=== PATIENT | female | born 1955 | race Caucasian/White ===

== ENCOUNTER 2025-05-13 10:02 | Outpatient (CLI) | payer MEDICARE, SELFPAY ==
--- NOTE | 2025-05-13 11:00 | CRLHL7_ITS ---
For Patients: As a result of the Century Cures Act, medical imaging exams and procedure reports are released immediately into your electronic medical record. You may view this report before your referring provider. If you have questions, please contact your health care provider. INDICATION: Lung cancer screening. History of smoking. High risk patient with 25 pack-year smoking history. TECHNIQUE: Low-dose lung cancer screening non-contrast CT chest. Dose reduction techniques were used. COMPARISON: None. FINDINGS: NODULES: 4 mm nodule right lower lobe image 108 series 3. Several additional right lower lobe micro nodules best seen on the MIP images. LUNGS AND PLEURA: Normal. MEDIASTINUM: Normal. CORONARY ARTERY CALCIFICATION: Present. LIMITED UPPER ABDOMEN: Gastric bypass. Cholecystectomy. 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 IMPRESSION: 1. Negative for lung cancer screening purposes. LUNG-RADS CATEGORY 2: Benign. Continue annual screening, if eligible, with low-dose CT chest in 12 months. Please note that all CT scans at this facility use dose modulation, iterative reconstruction, and/or weight-based dosing when appropriate to reduce radiation dose to as low as reasonably achievable. Dictated by Dami Aparicio MD @ 05/14/2025 10:43:21 AM (Electronically Signed)
== END 2025-05-13 10:03 | disposition home or self-care (01) ==
LOC: CT 10:03
PROVIDERS: PCP Family Medicine; Visit Provider Family Medicine
DX: Z12.2 Encounter for screening for malignant neoplasm of respiratory organs (principal); F17.200 Nicotine dependence, unspecified, uncomplicated
CPT/HCPCS: 71271

== ENCOUNTER 2025-07-01 08:57 | Outpatient (CLI) | payer MEDICARE, SELFPAY | END 2025-07-01 08:58 | disposition home or self-care (01) | LOC: FRMREF 08:57 | PROVIDERS: PCP Family Medicine; Visit Provider Family Medicine | DX: E87.1 Hypo-osmolality and hyponatremia (principal); E78.5 Hyperlipidemia, unspecified; I10 Essential (primary) hypertension; E11.9 Type 2 diabetes mellitus without complications | CPT/HCPCS: 80053; 80061; 82043; 82570 ==

== ENCOUNTER 2025-07-04 11:46 | Outpatient (CLI) | payer MEDICARE, SELFPAY | END 2025-07-04 11:47 | disposition home or self-care (01) | LOC: FRMREF 11:47 | PROVIDERS: PCP Family Medicine; Visit Provider Family Medicine | DX: I10 Essential (primary) hypertension (principal); Z13.29 Encounter for screening for other suspected endocrine disorder | CPT/HCPCS: 84295; 84443 ==

== ENCOUNTER 2025-07-11 12:05 | Day surgery (SDC) | payer MEDICARE, SELFPAY ==
[2025-07-11] VITALS (7 sets, daily range): BP systolic 139–181; BP diastolic 60–92; PULSE 69–86; RESP 16; TEMP 36.1–36.9; O2SAT 91–96; BMI 29.5
[2025-07-11] MEDS: LACTATED RINGERS 1000 ML 1,000 ML 100 ML IV ×2 (12:15→14:55)
[2025-07-11] MEDS: SODIUM CHLORIDE 0.9 % (FLUSH) 10 ML SYRINGE IVF (13:00)
--- NOTE | 2025-07-11 13:18 | W.PM.H&PU ---
History & Physical Update History & Physical Update H&P Reviewed and patient assessed: No changes noted
[2025-07-11] MEDS: SILVER NITRATE APPLICATOR 1 EACH STICK..EA. TOPICAL (14:29)
--- NOTE | 2025-07-11 14:51 | P.GYNPRC_ITS ---
Procedure Note Date of procedure: 07/11/25 Will [facility] bill your pro fee for this procedure?: Yes Pre-op diagnosis: Vulvar cysts Post-op diagnosis: Same, calcified inclusion cysts Procedure: Exam under anesthesia, removal of multiple vulvar inclusion cysts Complications: None Surgeon: Wilda Castle MD Estimated blood loss (mL): 5 Pathology: specimen obtained, sent to pathology Condition: stable Disposition: same day Findings: Multiple vulvar cysts, largest on the left labia minora of about 2cm in largest dimension, second largest on the right clitoral rocha of about 1cm, another on the right medial aspect of labia majora of about 1cm, 3 smaller ones that were removed of about 0.5cm. These were all consistent with calcified inclusion cyst s. One of the cyst capsule sent to pathology to confirm this diagnosis. Procedure Description: Patient was taken to the OR were MAC anesthesia was administered without difficulty. She was placed in the dorsal lithotomy position with Gavin type stirrups. Patient was then prepared and draped in the normal sterile fashion. 0.5% lidocaine with epinephrine was first injected into the skin over were the incision for cyst removal was to be performed. Cyst was drained with pressure, then utilizing pickups and small Metzenbaum scissors the skin was from cyst capsule and capsule was sequentially removed. The cyst space was then irrigated with normal saline. The defect of the largest cyst that was removed was treated with silver nitrate but the fatty layer/ space was approximated with Vicryl 3-0 in a figure of 8 fashion. Then the skin over was approximated with interrupted Vicryl 4-0 suture in a subcuticular fashion. For the rest of the cysts there was no need to close space, only the skin. So in a similar fashion cysts removed in the right clitoral rocha, medial aspect of right labia majora at around 9 and 8 o clock, perineum close to introitus, medial aspect of left labia majora at 3 o clock. Hemostasis was secured. Procedure ended. Patient tolerated the procedure well. Instrument and sponge counts were correct x2. Th e patient was awakened from MAC anesthesia and taken to the recovery room in a stable condition. The patient will go home after recovering from anesthesia and meeting all the criteria for discharge. She was given instruction regarding follow-up visit in 2 weeks at [facility] and instructions for pain medication.
--- NOTE | 2025-07-11 14:58 | P.ANES_ITS ---
Anesthesia Charges Start Date/Time Anesthesia Start Date: 07/11/25 Anesthesia Start Time: 13:27 Stop Date/Time Anesthesia Stop Date: 07/11/25 Anesthesia Stop Time: 14:55 Summary Extremes of Age - Over 70 or under 1: MANAGER RESPIRATORY CARE Coding CPT Codes CPT Codes: ANESTH VAGINAL PROCEDURES - 96101 ([id number]) P3 - PATIENT W/SEVERE SYS DISEASE, QK - INSTRUCTOR OF NURSING 2-4 CNCRNT ANES PROC Additional Codes: Summary - Extremes of Age - Over 70 or under 1: MANAGER RESPIRATORY CARE ([id number])
--- NOTE | 2025-07-11 14:58 | W.ANESCHARGE ---
Anesthesia Charges Start Date/Time Anesthesia Start Date: 07/11/25 Anesthesia Start Time: 13:27 Stop Date/Time Anesthesia Stop Date: 07/11/25 Anesthesia Stop Time: 14:55 Summary Extremes of Age - Over 70 or under 1: SENIOR PACKAGING ENGINEER Coding CPT Codes CPT Codes: ANESTH VAGINAL PROCEDURES - 51603 ([id number]) P3 - PATIENT W/SEVERE SYS DISEASE, QK - FIELD COUNSEL 2-4 CNCRNT ANES PROC Additional Codes: Summary - Extremes of Age - Over 70 or under 1: SENIOR PACKAGING ENGINEER ([id number])
--- NOTE | 2025-07-11 15:04 | P.ANES_ITS ---
Anesthesia Charges Start Date/Time Anesthesia Start Date: 07/11/25 Anesthesia Start Time: 13:27 Stop Date/Time Anesthesia Stop Date: 07/11/25 Anesthesia Stop Time: 14:55 Summary Extremes of Age - Over 70 or under 1: MDA Coding CPT Codes CPT Codes: ANESTH VAGINAL PROCEDURES - 70990 ([id number]) P3 - PATIENT W/SEVERE SYS DISEASE, QK - OPERATIONS AND MAINTENANCE TECHNICAN 2-4 CNCRNT ANES PROC, QX - CONTOUR GRINDER SVC W/ MD MED DIRECTION Additional Codes: Summary - Extremes of Age - Over 70 or under 1: MDA ([id number])
--- NOTE | 2025-07-11 15:04 | W.ANESCHARGE ---
Anesthesia Charges Start Date/Time Anesthesia Start Date: 07/11/25 Anesthesia Start Time: 13:27 Stop Date/Time Anesthesia Stop Date: 07/11/25 Anesthesia Stop Time: 14:55 Summary Extremes of Age - Over 70 or under 1: MDA Coding CPT Codes CPT Codes: ANESTH VAGINAL PROCEDURES - 64220 ([id number]) P3 - PATIENT W/SEVERE SYS DISEASE, QK - NUCLEAR RADIATION ENGINEER 2-4 CNCRNT ANES PROC, QX - MACHINE CHOCOLATE MOLDER SVC W/ MD MED DIRECTION Additional Codes: Summary - Extremes of Age - Over 70 or under 1: MDA ([id number])
[2025-07-11] MEDS: IBUPROFEN 600 MG TABLET PO (15:28)
--- NOTE | 2025-07-11 15:28 | SUR.PHASEII ---
Pt c/o discomfort in her groin area post procedure. May be from positioning in stirrups and the length of time in them. 600 mg Ibuprofen given and ice pack placed as well. Continue to monitor.
[2025-07-11] MEDS: ACETAMINOPHEN 500 MG TABLET 1000 MG PO (16:00)
== END 2025-07-11 16:50 | disposition home or self-care (01) ==
LOC: OR 12:05
PROVIDERS: PCP Family Medicine; Visit Provider Obstetrics & Gynecology
PROC: (CPT 11420; principal; 2025-07-11 13:30)
DX: N90.7 Vulvar cyst (principal)
CPT/HCPCS: 11420 ×3; 11421 ×2; 11422; 12041; 00940; 88304; 99100; A9270; J2250; J2405; J2704; J3010; J7120

== ENCOUNTER 2025-07-16 10:53 | Outpatient (CLI) | payer MEDICARE, SELFPAY | END 2025-07-16 10:54 | disposition home or self-care (01) | LOC: NFLDREF 07-21 10:17 | PROVIDERS: PCP Family Medicine; Referring Provider Family Medicine; Visit Provider Family Medicine | DX: E87.1 Hypo-osmolality and hyponatremia (principal) | CPT/HCPCS: 84295 ==

== ENCOUNTER 2025-07-25 09:55 | Outpatient (CLI) | payer MEDICARE, SELFPAY ==
--- NOTE | 2025-07-25 10:00 | CRLHL7_ITS ---
For Patients: As a result of the Century Cures Act, medical imaging exams and procedure reports are released immediately into your electronic medical record. You may view this report before your referring provider. If you have questions, please contact your health care provider. XR DXA Bone Mineral Density (BMD) Current height (in): 63. Weight (lb): 170. Menopause age: 33. Ethnicity: White. 1. Have you had a previous hip or vertebral fracture? No. 2. Have you had any fractures during your adult life which did not result from significant trauma (e.g., auto accident)? No. 3. Did either of your parents have a hip fracture? No. 4. Do you smoke? Yes. 5. Have you ever taken Glucocorticoids? No. 6. Do you have rheumatoid arthritis? No. 7. Do you have secondary osteoporosis? Yes. 8. Do you drink 3 or more alcoholic drinks per day? No. 9. Are you being treated for osteoporosis? No. 10. Have you ever taken any of the following medications: Actonel, Evista, Fosamax, Miacalcin, Reclast, Boniva, Forteo, HRT (i.e. estrogen/hormone therapy), Protelos, Prolia, Vitamin D, Calcium, other ??? please specify. ANSWER: No. 11. Do you have any of the following medical conditions: Anorexia or bulimia, asthma or emphysema, end stage renal disease, hyperparathyroidism, any seizure disorders, cancer, inflammatory bowel diseases, hysterectomy, other ??? please specify. ANSWER: Yes, hysterectomy. 12. What was your maximum height (inches)? 63. 13. Do you perform weight bearing exercise regularly? No. 14. Do you regularly consume dairy products? Yes. 15. Do you drink caffeinated beverages? Yes. 16. At what age did your period start? 8. 17. Are you premenopausal? No. 18. How many full term pregnancies have you had? 2. 19. Have you ever missed your period for more than 6 months in a row (not including or menopause)? No. TECHNIQUE: Bone mineral density study was performed using the [employer]. FINDINGS: The results of the study expressed as bone mineral density (BMD) are as follows: Lumbar spine L1 to L4: BMD: 0.869 g/cm2. T-score: -1.6. Z-score: 0.6. Neck Left: BMD: 0.557 g/cm2. T-score: -2.6. Z-score: -0.7. Right: BMD: 0.474 g/cm2. T-score: -3.4. Z-score: -1.5. Total Left: BMD: 0.607 g/cm2. T-score: -2.7. Z-score: -1.1. Right: BMD: 0.632 g/cm2. T-score: -2.5. Z-score: -0.9. IMPRESSION: Osteoporosis. *Comparison exams done prior to 12/2019 were performed on different unit, [place]. Frank Duffy M.D. Diagnostic Radiologist [email or web address] [place]/Dictated by: Frank Duffy MD @ 07/27/2025 1:34:00 PM (Electronically Signed)
== END 2025-07-25 09:56 | disposition home or self-care (01) ==
LOC: RAD 09:55
PROVIDERS: PCP Family Medicine; Visit Provider Family Medicine
DX: M81.0 Age-related osteoporosis without current pathological fracture (principal)
CPT/HCPCS: 77080